=== PATIENT | male | born 2000 | race Caucasian/White ===

== ENCOUNTER 2018-01-06 19:16 | Emergency (ER) | payer SELFPAY ==
[~2018-01-06] VITALS: Ht 190.5 cm; Wt 91.6 kg
[~2018-01-06 19:16] MED LIST: AMOX50SU PO; CEPH250SUA PO; CEPH500 PO; IBUP100S; METPRE4DP PO; MUPI2TO TOP; POLTRIOPSO OD; Permethrin60 GM TP; RXPROMSY PO
== END 2018-01-06 21:20 | disposition left against medical advice (07) ==
LOC: ER 19:16
DX: Z53.21 Procedure and treatment not carried out due to patient leaving prior to being seen by health care provider (principal)

== ENCOUNTER 2019-06-04 13:25 | Emergency (ER) | payer OTHER ==
[~2019-06-04] VITALS: Ht 190.5 cm; Wt 90.7 kg
[2019-06-04] MEDS ORDERED: LIDO700A20 TOP (15:21)
[2019-06-04] MEDS ORDERED: Baclofen10 MG PO (15:21)
== END 2019-06-04 15:35 | disposition home or self-care (01) ==
LOC: ER 13:25
DX: S39.012A Strain of muscle, fascia and tendon of lower back, initial encounter (principal); F17.210 Nicotine dependence, cigarettes, uncomplicated; X58.XXXA Exposure to other specified factors, initial encounter
CPT/HCPCS: 99283

== ENCOUNTER 2020-05-14 10:44 | Emergency (ER) | payer OTHER ==
[~2020-05-14] VITALS: Ht 190.5 cm; Wt 94.8 kg
[~2020-05-14 10:44] MED LIST changes: +Baclofen10 MG PO; +LIDO700A20 TOP
== END 2020-05-14 12:55 | disposition home or self-care (01) ==
LOC: ER 10:44
DX: S06.0X0A Concussion without loss of consciousness, initial encounter (principal); F17.290 Nicotine dependence, other tobacco product, uncomplicated; Z91.030 Bee allergy status; W22.8XXA Striking against or struck by other objects, initial encounter; Y92.89 Other specified places as the place of occurrence of the external cause; Y99.0 Civilian activity done for income or pay
CPT/HCPCS: 70450; 99283-25